=== PATIENT | female | born 1945 | race Caucasian/White ===

== ENCOUNTER → 2017-08-31 10:34 | Outpatient (CLI) | payer OTHER, SELFPAY ==
--- NOTE | 2017-08-31 10:38 | DI.MG.S_ITS ---
BILATERAL DIGITAL SCREENING MAMMOGRAM 3D/2D WITH CAD: 08/31/2017 CLINICAL: Routine screening. Comparison is made to exams dated: 07/08/2014 mammogram - [facility], 07/07/2013 mammogram, and 06/25/2012 mammogram - [facility]. The tissue of both breasts is heterogeneously dense. This may lower the sensitivity of mammography. Current study was also evaluated with a Computer Aided Detection (CAD) system. There is a 0.8 cm oval low density asymmetry with an indistinct margin in the left breast posterior depth superior region seen on the mediolateral oblique view only. There also is a 0.9 cm oval equal density asymmetry with an indistinct margin in the left breast middle depth central to the nipple seen on the craniocaudal view only. No other significant masses, calcifications, or other findings are seen in either breast. IMPRESSION: INCOMPLETE: NEEDS ADDITIONAL IMAGING EVALUATION The 0.8 cm oval low density asymmetry in the left breast posterior depth superior region seen on the mediolateral oblique view only is indeterminate. Mediolateral and spot compression views as well as additional views with possible ultrasound are recommended. The 0.9 cm oval equal density asymmetry in the left breast middle depth central to the nipple seen on the craniocaudal view only is indeterminate. Mediolateral and spot compression views as well as additional views with possible ultrasound are recommended. This exam was interpreted at Station ID: [id number]. NOTE: For mammograms, a report in lay terms will be sent to the patient. Approximately 15% of breast malignancies will not be visualized mammographically. In the management of a palpable breast mass, a negative mammogram must not discourage biopsy of a clinically suspicious lesion. Electronically Signed By: Justin covarrubias/sara:08/31/2017 16:16:44 letter sent: Additional Imaging Needed ACR BI-RADS Category 0: Incomplete 3340F
== END ==
PROVIDERS: PCP Family Medicine; Visit Provider Family Medicine
DX: Z12.31 Encounter for screening mammogram for malignant neoplasm of breast (principal)
CPT/HCPCS: 77063; 77067

== ENCOUNTER → 2017-09-14 08:58 | Outpatient (CLI) | payer OTHER, SELFPAY ==
--- NOTE | 2017-09-14 08:59 | DI.MG.S_ITS ---
UNILATERAL LEFT DIGITAL DIAGNOSTIC MAMMOGRAM 3D/2D WITH ADDITIONAL VIEWS: 09/14/2017 CLINICAL: Additional evaluation requested from prior study. Comparison is made to exams dated: 08/31/2017 mammogram, 07/08/2014 mammogram - [facility], and 07/07/2013 mammogram - [facility]. The tissue of the left breast is heterogeneously dense. This may lower the sensitivity of mammography. There is a 0.9 cm oval low density asymmetry with an indistinct margin in the left breast posterior depth superior region seen on the mediolateral oblique view only 10 cm from the nipple. There also is a 1 cm oval equal density asymmetry with an indistinct margin in the left breast middle depth central to the nipple seen on the craniocaudal view only 6 cm from the nipple. No other significant masses or calcifications are seen in the breast. IMPRESSION: INCOMPLETE: NEEDS ADDITIONAL IMAGING EVALUATION The 0.9 cm oval low density asymmetry in the left breast posterior depth superior region seen on the mediolateral oblique view only is indeterminate. An ultrasound is recommended. The 1 cm oval equal density asymmetry in the left breast middle depth central to the nipple seen on the craniocaudal view only is indeterminate. An ultrasound is recommended. This exam was interpreted at Station ID: [id number]. NOTE: For mammograms, a report in lay terms will be sent to the patient. Approximately 15% of breast malignancies will not be visualized mammographically. In the management of a palpable breast mass, a negative mammogram must not discourage biopsy of a clinically suspicious lesion. Electronically Signed By: William ro/sara:09/14/2017 12:07:41 ACR BI-RADS Category 0: Incomplete 3340F
--- NOTE | 2017-09-14 08:59 | DI.US.S_ITS ---
ULTRASOUND OF LEFT BREAST: 09/14/2017 CLINICAL: Patient returns for additional imaging over a suspected mass in the left breast. Comparison is made to exams dated: 09/14/2017 mammogram, 08/31/2017 mammogram, and 07/08/2014 mammogram - [facility]. Color flow ultrasound of the left breast was performed. Greco scale images of the real-time examination were reviewed. There is a benign 1 cm simple cyst in the left breast at 3 o'clock middle depth. This finding does not correspond to the areas questioned on mammography. IMPRESSION: PROBABLY BENIGN - FOLLOW-UP RECOMMENDED The 1 cm simple cyst in the left breast is benign. There is no abnormality seen in the left breast to correspond with the mammography findings. A follow-up left mammogram and an ultrasound in 6 months is recommended to demonstrate stability. Findings and recommendations discussed with the patient by the process safety engineering technologist at the time of evaluation. This exam was interpreted at Station ID: [id number]. Electronically Signed By: William Meneses M.D. cj/:09/14/2017 13:48:11 letter sent: Followup Recommended Ultrasound BI-RADS: 3 Probably benign
== END ==
PROVIDERS: PCP Family Medicine; Visit Provider Family Medicine
DX: R92.8 Other abnormal and inconclusive findings on diagnostic imaging of breast (principal)
CPT/HCPCS: 76642; 77065; G0279

== ENCOUNTER 2017-10-24 11:11 | Day surgery (SDC) | payer OTHER, SELFPAY ==
[2017-10-10 13:13] VITALS: BMI 19.3
[2017-10-24] VITALS (8 sets, daily range): BP systolic 96–155; BP diastolic 58–85; PULSE 90–102; RESP 12–17; TEMP 36.3–37.2; O2SAT 100; BMI 19.3
[2017-10-24] MEDS: LACTATED RINGERS 1,000 ML 100 ML IV (11:43)
--- NOTE | 2017-10-24 12:11 | SUR.OPER ---
Supine on padded OR bed, head on pillow, arms secured on padded arm boards at <90 degrees abduction, legs uncrossed, safety belt at thigh, tape over blanket over lower legs.
--- NOTE | 2017-10-24 12:26 | PM.PREOP ---
Pre-operative Note Interval Note Pre-op Check: Yes History & Physical Reviewed by Physician Changes: No
[2017-10-24] MEDS: CEFAZOLIN 2 GM/100 ML FROZ.PIGGY IV (12:29)
[2017-10-24] MEDS: LIDOCAINE 1% W/EPI INJ 20 ML INJ (13:04)
[2017-10-24] MEDS: BUPIVACAINE 0.5% (PF) VIAL 30 ML INJ (13:08)
[2017-10-24] MEDS: CEFAZOLIN 1 GM VIAL IV (13:09)
--- NOTE | 2017-10-24 13:26 | PM.OP.1 ---
Operative Date/Time/Diagnoses Date of procedure: 10/24/17 Time of procedure: 13:26 Pre-op diagnosis: Left inguinal hernia Procedure & Clinicians Procedure: Left inguinal hernia repair Same procedure as scheduled: Yes Indications: Large left inguinal hernia Surgeon: Kathy Perera Click Yes if Unassisted: Yes Anesthesia Type: General (German) Operative Notes Findings: Large indirect left inguinal hernia Closure Type: primary Specimen(s): none sent Implants & Drains: Large Pro Loop implant mesh plug and patch Estimated Blood Loss (mL): 10 Blood products transfused: none Procedure in detail: After obtaining informed consent, the patient was brought to the operating room and placed in the supine position on the operating table. Following successful induction of general endotracheal anesthesia, appropriate padding of all bony prominences, and placement of appropriate monitors, the abdomen and left groin were prepped and draped in a standard surgical fashion. A timeout was held per NDOAP protocol. We began the procedure on the left side by creating an ilioinguinal nerve block. This was done by infiltrating a mixture of local anesthetics just medial to the anterior superior iliac spine on the left. We continued by creating an area in the left lower quadrant for an incision. A field block was created in this position. The incision was re-created and carried down through the skin and subcutaneous tissue to reveal the fascia of the external oblique aponeurosis. The fascia was opened in the direction of its fibers revealing the contents of the inguinal canal. The round ligament was easily identified and encircled with a Jaye drain. It was clamped on either side, tied, and divided. Exploration of the inguinal canal revealed a moderate size direct, as well as an indirect, left internal hernia. We elected to divide the round ligament. This was done between clamps and it was tied with Vicryl suture. We elected to repair the defects with a large piece of PROloop mesh. Both the plug and patch were used for repair. The plug was deployed first into the direct defect and sewn into place with interrupted Vicryl sutures. The patch was then dipped and Ancef containing solution and sewn to the pubic tubercle medially. It was tucked beneath the external oblique aponeurosis laterally. The wound was checked for hemostasis and irrigated copiously with warm saline solution. The external oblique aponeurosis was closed with a running locking Vicryl suture, Arias's fascia was closed, and Monocryl sutures were placed in the skin. All sponge, needle, and instrument counts were correct at the conclusion of the case. The patient was allowed to awaken from anesthesia without difficulty and taken to the post anesthesia care unit in good condition. Complications: none Condition: stable Disposition: PACU Plan for aftercare: 1. Discharge to home 2. Follow up with me in 2 weeks
== END 2017-10-24 14:40 | disposition home or self-care (01) ==
PROVIDERS: Family Provider Specialist; Visit Provider Surgery
PROC: (CPT 49505; principal; 2017-10-24 12:15)
DX: K40.90 Unilateral inguinal hernia, without obstruction or gangrene, not specified as recurrent (principal)
CPT/HCPCS: 49505; C1781; J0690; J1100; J2250; J2405; J2704; J3010

== ENCOUNTER → 2018-02-22 09:12 | Outpatient (CLI) | payer OTHER, SELFPAY | PROVIDERS: Family Provider Specialist; Visit Provider Otolaryngology | DX: Z01.810 Encounter for preprocedural cardiovascular examination (principal) | CPT/HCPCS: 93005; 93010 ==

== ENCOUNTER → 2018-03-13 13:41 | Outpatient (CLI) | payer OTHER, SELFPAY ==
--- NOTE | 2018-03-13 13:44 | DI.RAD.S_ITS ---
PROCEDURE: XR WRIST RT MIN 3V INDICATIONS: RIGHT WRIST PAIN TECHNIQUE: 4 views of the wrist were acquired. COMPARISON: None. FINDINGS: Bones: No fractures or dislocations. No suspicious bony lesions. Moderate to severe osteoarthritic changes along radial aspect of right wrist is seen most prominent at first CMC joint. Scaphoid view: Scaphoid is grossly intact. Soft tissues: No suspicious soft tissue calcifications. 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 Dictated by: Jesus Nichols M.D. on 03/13/2018 at 14:28 Approved by: Jesus Nichols M.D. on 03/13/2018 at 14:29
== END ==
PROVIDERS: Visit Provider Family Medicine
DX: M25.531 Pain in right wrist (principal); M18.11 Unilateral primary osteoarthritis of first carpometacarpal joint, right hand
CPT/HCPCS: 73110

== ENCOUNTER → 2018-03-15 09:08 | Outpatient (CLI) | payer OTHER, SELFPAY ==
--- NOTE | 2018-03-15 09:10 | DI.MG.S_ITS ---
UNILATERAL LEFT DIGITAL DIAGNOSTIC MAMMOGRAM 3D/2D: 03/15/2018 CLINICAL: Patient returns for a 6 month follow up of the left breast. Comparison is made to exams dated: 09/14/2017 mammogram, 08/31/2017 mammogram, and 07/08/2014 mammogram - [facility]. The tissue of left breast is heterogeneously dense. This may lower the sensitivity of mammography. There is an oval low density asymmetry with an indistinct and circumscribed margin in the left breast posterior depth superior region seen on the mediolateral oblique view only. This is not significantly changed. There also is an oval equal density asymmetry with an indistinct margin in the left breast middle depth central to the nipple seen on the craniocaudal view only. This is less prominent. No other significant masses or calcifications are seen in the breast. IMPRESSION: INCOMPLETE: NEEDS ADDITIONAL IMAGING EVALUATION The oval low density asymmetry in the left breast posterior depth superior region seen on the mediolateral oblique view only is indeterminate. An ultrasound is recommended. The oval equal density asymmetry in the left breast middle depth central to the nipple seen on the craniocaudal view only is probably benign. A follow-up mammogram in 6 months is recommended. This exam was interpreted at Station ID: [id number]. NOTE: For mammograms, a report in lay terms will be sent to the patient. Approximately 15% of breast malignancies will not be visualized mammographically. In the management of a palpable breast mass, a negative mammogram must not discourage biopsy of a clinically suspicious lesion. Electronically Signed By: Justin covarrubias/sara:03/15/2018 10:03:56 letter sent: Need Ultrasound ACR BI-RADS Category 0: Incomplete 3340F
--- NOTE | 2018-03-15 09:10 | DI.US.S_ITS ---
LIMITED ULTRASOUND OF LEFT BREAST: 03/15/2018 CLINICAL: 6 month follow-up of cysts. Comparison is made to exams dated: 03/15/2018 mammogram, 09/14/2017 ultrasound, 09/14/2017 mammogram, 08/31/2017 mammogram, 07/08/[address] - [facility], and 07/07/2013 mammogram - [facility]. Color flow and real-time ultrasound of the left breast upper outer quadrant were performed on the areas of interest. There is a stable benign 1 cm x 0.9 cm x 0.5 cm oval cyst with a septated internal wall in the left breast at 3 o'clock middle depth. This oval cyst is anechoic with a well-defined boundary and posterior acoustic enhancement. Color flow imaging demonstrates that there is no vascularity present. There also is a benign 0.5 cm x 0.4 cm x 0.5 cm oval normal lymph node in the left breast at 2 o'clock. This oval normal lymph node is of mixed echogenicity with fatty hilum. Color flow imaging demonstrates that there is no increase in vascularity. It is unclear if this corresponds to the superior asymmetry on mammogram. IMPRESSION: PROBABLY BENIGN The stable 1 cm x 0.9 cm x 0.5 cm oval cyst in the left breast at 3 o'clock middle depth is consistent with a simple cyst and is benign. The 0.5 cm x 0.4 cm x 0.5 cm oval normal lymph node in the left breast at 2 o'clock is benign. No definite correlate to the asymmetry in the superior left breast on mammogram. A follow-up mammogram in 6 months is recommended to demonstrate stability of the mammography findings in the left breast. This exam was interpreted at Station ID: [id number]. Electronically Signed By: Justin Stinson M.D. ddconchita/:03/15/2018 10:41:01 letter sent: Followup Recommended Ultrasound BI-RADS: 3 Probably benign
== END ==
PROVIDERS: Family Provider Specialist; Visit Provider Family Medicine
DX: R92.8 Other abnormal and inconclusive findings on diagnostic imaging of breast (principal); N60.02 Solitary cyst of left breast
CPT/HCPCS: 76642; 77065; G0279

== ENCOUNTER → 2018-10-03 16:14 | Outpatient (CLI) | payer OTHER, SELFPAY ==
[2018-10-03 16:30] LABS: Appearance Urine UA CLOUDY; Bilirubin Urine UA NEGATIVE (NEGATIVE); Color Urine UA YELLOW; Glucose Urine UA NEGATIVE (Negative); Ketones Urine UA NEGATIVE (NEGATIVE); Leukocyte Esterase Urine UA 3+ (NEGATIVE); Nitrite Urine UA NEGATIVE (Negative); Occult Blood Urine UA 1+ (Negative); Protein Urine UA NEGATIVE (Negative); Urobilinogen Urine UA 0.2 E.U./dL (0.2)
[2018-10-03 16:47] LABS: Bacteria Urine Many (>30); Culture Indicated Urine Specimen Cultured; RBC Urine 1-5/HPF (0-5/HPF); Squamous Epithelial Cell Urine None Seen (0-5/HPF); WBC Urine >100/HPF (0-5/HPF)
== END ==
PROVIDERS: Family Provider Specialist; Visit Provider Specialist
DX: R39.9 Unspecified symptoms and signs involving the genitourinary system (principal)
CPT/HCPCS: 81001; 87077; 87086; 87186

== ENCOUNTER → 2018-12-30 08:09 | Outpatient (CLI) | payer OTHER, SELFPAY ==
--- NOTE | 2018-12-30 08:12 | DI.US.S_ITS ---
LIMITED ULTRASOUND OF LEFT BREAST: 12/30/2018 CLINICAL: 10 month follow-up left breast. Comparison is made to exams dated: 12/30/2018 mammogram, 03/15/2018 ultrasound, 03/15/2018 mammogram, 09/14/2017 ultrasound, 09/14/2017 mammogram, and 08/31/2017 mammogram - [facility]. Color flow and real-time ultrasound of the left breast 2-3 o'clock region were performed. Greco scale images of the real-time examination were reviewed. There is a stable 1.1 cm x 1.1 cm x 0.5 cm (previously 1.0 cm x 0.9 cm x 0.5 cm on 03/15/18 and 09/14/17) oval cyst with avascular internal septations in the left breast at 3 o'clock position 4 cm from the nipple. This oval cyst is anechoic with posterior acoustic enhancement. Color flow imaging demonstrates that there is no vascularity present. It is unclear if this corresponds to the asymmetry seen on mammography. There is diffuse left breast ductal ectasia/dilitation without suspicious internal mass or abnormal vascularity. There also is a stable 0.3 m x 0.2 cm x 0.3 cm (previously 0.5 cm x 0.4 cm x 0.5 cm on 03/15/18) oval intramammary lymph node in the left breast at 2:30 position 15 cm from the nipple. This oval lymph node is of mixed echogenicity with preserved fatty hilum. Color flow imaging demonstrates that there is no increase in vascularity. There is no suspicious cortical thickening. It is unclear if this corresponds to the asymmetry seen on mammography. IMPRESSION: PROBABLY BENIGN 1) Stable 1.1 cm probable complicated cyst in the left breast at 3 o'clock position 4 cm from the nipple. It is unclear if this corresponds to the asymmetry seen on mammography. A follow-up diagnostic mammogram and possible ultrasound in 6 months is recommended to demonstrate continued stability. 2) Stable 0.3 cm intramammary lymph node in the left breast at 2:30 position 15 cm from the nipple. It is unclear if this corresponds to the asymmetry seen on mammography. A follow-up diagnostic mammogram and possible ultrasound in 6 months is recommended to demonstrate continued stability. This exam was interpreted at Station ID: [id number]. Electronically Signed By: Bernard Brantley M.D. ecl/:12/30/2018 10:04:30 letter sent: Followup Recommended Ultrasound BI-RADS: 3 Probably benign
--- NOTE | 2018-12-30 08:12 | DI.MG.S_ITS ---
BILATERAL DIGITAL DIAGNOSTIC MAMMOGRAM 3D/2D SHORT-TERM FOLLOW-UP: 12/30/2018 CLINICAL: Patient returns for a 6 month follow up of the left breast. Due for bilateral imaging. Comparison is made to exams dated: 03/15/2018 mammogram, 09/14/2017 mammogram, and 08/31/2017 mammogram - [facility]. The tissue of both breasts is heterogeneously dense. This may lower the sensitivity of mammography. Previously identified asymmetry in the left breast posterior depth superior region seen on the mediolateral oblique view only remains stable to comparison mammograms dating back to 09/14/18. Previously identified asymmetry in the left breast middle depth central to the nipple seen on the craniocaudal view only remains stable to comparison mammograms dating back to 09/14/18. An oval asymmetry in the right breast middle depth medial region near central to the nipple resolves with spot compression views, and is consistent with superimposed benign fibroglandular tissues. Bilateral circular skin mole markers are noted. IMPRESSION: INCOMPLETE: NEEDS ADDITIONAL IMAGING EVALUATION Previously identified asymmetry in the left breast posterior depth superior region seen on the mediolateral oblique view only remains stable to comparison mammograms dating back to 09/14/18. A targeted ultrasound is recommended for further evalauation. Previously identified asymmetry in the left breast middle depth central to the nipple seen on the craniocaudal view only remains stable to comparison mammograms dating back to 09/14/18. A targeted ultrasound is recommended for further evalauation. This exam was interpreted at Station ID: [id number]. NOTE: For mammograms, a report in lay terms will be sent to the patient. Approximately 15% of breast malignancies will not be visualized mammographically. In the management of a palpable breast mass, a negative mammogram must not discourage biopsy of a clinically suspicious lesion. Electronically Signed By: Bernard Brantley M.D. ecl/:12/30/2018 09:12:01 ACR BI-RADS Category 0: Incomplete 3340F
== END ==
PROVIDERS: Visit Provider Specialist
DX: R92.8 Other abnormal and inconclusive findings on diagnostic imaging of breast (principal); N60.02 Solitary cyst of left breast; N64.89 Other specified disorders of breast
CPT/HCPCS: 76642; 77066; G0279

== ENCOUNTER → 2019-01-31 14:49 | Outpatient (CLI) | payer OTHER, SELFPAY | DX: Z23 Encounter for immunization (principal) | CPT/HCPCS: 90471; 90662 ==

== ENCOUNTER → 2019-04-14 10:59 | Outpatient (CLI) | payer OTHER, SELFPAY ==
[2019-04-16 15:24] LABS: Fecal Immunochemical Test NOT DETECTED (NOT DETECTED)
== END ==
PROVIDERS: PCP Family Medicine; Referring Provider Family Medicine; Visit Provider Family Medicine
DX: Z12.11 Encounter for screening for malignant neoplasm of colon (principal)
CPT/HCPCS: 82274

== ENCOUNTER → 2019-07-31 09:05 | Outpatient (CLI) | payer OTHER, SELFPAY ==
--- NOTE | 2019-07-31 09:06 | DI.MG.S_ITS ---
UNILATERAL LEFT DIGITAL DIAGNOSTIC MAMMOGRAM 3D/2D SHORT-TERM FOLLOW-UP: 07/31/2019 CLINICAL: Short term follow up. Comparison is made to exams dated: 03/15/2018 mammogram, 09/14/2017 mammogram, 08/31/2017 mammogram, and 07/08/2014 mammogram - [facility]. The tissue of left breast is heterogeneously dense. This may lower the sensitivity of mammography. There is an oval low density asymmetry with a circumscribed margin in the left breast posterior depth superior region seen on the mediolateral oblique view only. There also is an oval low density focal asymmetry with an indistinct margin in the left breast at 12 o'clock posterior depth. This is progressively less prominent compared to prior studies. No other significant masses or calcifications are seen in the breast. IMPRESSION: INCOMPLETE: NEEDS ADDITIONAL IMAGING EVALUATION The stable oval low density asymmetry in the left breast posterior depth superior region seen on the mediolateral oblique view only is indeterminate. An ultrasound is recommended. This exam was interpreted at Station ID: [id number]. NOTE: For mammograms, a report in lay terms will be sent to the patient. Approximately 15% of breast malignancies will not be visualized mammographically. In the management of a palpable breast mass, a negative mammogram must not discourage biopsy of a clinically suspicious lesion. Electronically Signed By: Justin Stinson M.D. ddconchita/:07/31/2019 10:25:18 ACR BI-RADS Category 0: Incomplete 3340F
--- NOTE | 2019-07-31 09:06 | DI.US.S_ITS ---
LIMITED ULTRASOUND OF LEFT BREAST: 07/31/2019 CLINICAL: 6 month follow-up of cyst/node/duct. Comparison is made to exams dated: 07/31/2019 mammogram, 12/30/2018 ultrasound, 12/30/2018 mammogram, 03/15/2018 ultrasound, 03/15/2018 mammogram, and 09/14/2017 [facility]. Color flow and real-time ultrasound of the left breast 2-3 o'clock region were performed on the areas of interest. There is a stable benign 1.2 cm x 0.8 cm x 1.2 cm oval cyst in the left breast at 3 o'clock middle depth. This oval cyst is anechoic with a well-defined boundary and posterior acoustic enhancement. Color flow imaging demonstrates that there is no vascularity present. There also is a stable benign 0.4 cm x 0.4 cm normal lymph node in the left breast at 2 o'clock posterior depth. This normal lymph node is of mixed echogenicity with fatty hilum. This correlates with mammography findings. Color flow imaging demonstrates that there is no increase in vascularity. Additionally, there is a stable benign dilated duct in the left breast at 3 o'clock in the retroareolar region. This dilated duct displays posterior acoustic enhancement. IMPRESSION: BENIGN There is no sonographic evidence of malignancy. The stable 1.2 cm x 0.8 cm x 1.2 cm oval cyst in the left breast at 3 o'clock middle depth is consistent with a simple cyst and is benign. The stable 0.4 cm x 0.4 cm normal lymph node in the left breast at 2 o'clock posterior depth is consistent with a benign appearing lymph node. The stable dilated duct in the left breast at 3 o'clock in the retroareolar region likely represents duct ectasia and is benign. A 1 year screening mammogram is recommended. This exam was interpreted at Station ID: [id number]. Electronically Signed By: Justin covarrubias/:07/31/2019 10:22:33 letter sent: Normal Exam Ultrasound BI-RADS: 2 Benign
== END ==
PROVIDERS: PCP Family Medicine; Referring Provider Specialist; Visit Provider Specialist
DX: R92.8 Other abnormal and inconclusive findings on diagnostic imaging of breast (principal); N60.02 Solitary cyst of left breast; N60.42 Mammary duct ectasia of left breast; N64.89 Other specified disorders of breast
CPT/HCPCS: 76642; 77065; G0279

== ENCOUNTER → 2019-09-28 11:27 | Outpatient (CLI) | payer OTHER, SELFPAY | PROVIDERS: PCP Family Medicine; Visit Provider Physician Assistant | DX: R30.0 Dysuria (principal) | CPT/HCPCS: 87077; 87086; 87186 ==

== ENCOUNTER → 2020-03-19 09:43 | Outpatient (CLI) | payer OTHER, SELFPAY ==
[2020-03-19] MEDS: COVID-19 VACC(MODERNA-1)/PF 100 MCG/0.5 ML VIAL IM (09:53)
== END ==
PROVIDERS: PCP Family Medicine; Visit Provider Internal Medicine
DX: Z23 Encounter for immunization (principal)
CPT/HCPCS: 0011A; 91301

== ENCOUNTER → 2020-04-30 15:14 | Outpatient (CLI) | payer OTHER, SELFPAY ==
[2020-04-30] MEDS: COVID-19 VACC #2, MRNA(MOD) 100 MCG/0.5 ML VIAL IM (15:23)
== END ==
PROVIDERS: PCP Family Medicine; Visit Provider Internal Medicine
DX: Z23 Encounter for immunization (principal)
CPT/HCPCS: 0012A; 91301

== ENCOUNTER → 2021-02-28 08:51 | Outpatient (CLI) | payer MEDICARE, SELFPAY ==
--- NOTE | 2021-02-28 | DI.MG.S_ITS ---
BILATERAL DIGITAL SCREENING MAMMOGRAM 3D/2D WITH CAD: 02/28/2021 CLINICAL: Routine screening. Comparison is made to exams dated: 07/31/2019 mammogram, 12/30/2018 mammogram, 03/15/2018 mammogram, 09/14/2017 mammogram, 08/31/2017 mammogram - [facility], and 07/07/2013 mammogram - [facility]. The tissue of both breasts is heterogeneously dense. This may lower the sensitivity of mammography. Current study was also evaluated with a Computer Aided Detection (CAD) system. There is a benign cyst in the left breast. No significant masses, calcifications, or other findings are seen in either breast. There has been no significant interval change. IMPRESSION: BENIGN There is no mammographic evidence of malignancy. A 1 year screening mammogram is recommended. This exam was interpreted at Station ID: [id number]. NOTE: For mammograms, a report in lay terms will be sent to the patient. Approximately 15% of breast malignancies will not be visualized mammographically. In the management of a palpable breast mass, a negative mammogram must not discourage biopsy of a clinically suspicious lesion. Electronically Signed By: Jan Ornelas M.D., jr/sara:02/28/2021 11:43:48 letter sent: Normal Exam ACR BI-RADS Category 2: Benign Finding(s) 3342F
== END ==
PROVIDERS: PCP Family Medicine; Referring Provider Family Medicine; Visit Provider Family Medicine
DX: Z12.31 Encounter for screening mammogram for malignant neoplasm of breast (principal)
CPT/HCPCS: 77063; 77067